=== PATIENT | male | born 1970 | race Hispanic/Latino ===

== ENCOUNTER 2021-04-19 14:05 | Emergency (ER) | payer OTHER ==
--- NOTE | 2021-04-19 15:25 | ER ---
Nurse's Notes [facility] Name: Rebel Centeno Jr Age: 50 yrs Sex: Male : 1970 Arrival Date: 04/19/2021 Time: 14:07 Bed 14 Private MD: Hannah Pimentel C Diagnosis: Presentation: 04/19 14:22 Chief complaint: Patient states: L wrist pain, swelling, tenderness since midnight. No ll1 trauma, but uses his hands a lot at work. PMS intact. Coronavirus screen: Client denies travel out of the [place] in the last 14 days. At this time, the client does not indicate any symptoms associated with coronavirus-19. Ebola Screen: Patient denies travel to an Ebola-affected area in the 21 days before illness onset. Initial Sepsis Screen: Does the patient meet any 2 criteria? No. Patient's initial sepsis screen is negative. Does the patient have a suspected source of infection? No. Patient's initial sepsis screen is negative. Risk Assessment: Do you want to hurt yourself or someone else? Patient reports no desire to harm self or others. Onset of symptoms was April 19, 2021. 14:22 Method Of Arrival: Ambulatory ll1 14:22 Acuity: MANJINDER 4 ll1 Historical: - Allergies: 14:22 PENICILLINS; ll1 - PMHx: 14:22 None; ll1 - PSHx: 14:22 knee sx; twisted intestines at with repair; ll1 - Immunization history:: Flu vaccine is not up to date. - Social history:: Smoking status: Patient denies any tobacco usage or history of. Vital Signs: 14:22 BP 147 / 104; Pulse 71; Resp 17; Temp 98.5; Pulse Ox 97% ; Weight 104.33 kg; Height 5 ll1 ft. 9 in. (175.26 cm); Pain 10/10; 14:22 Body Mass Index 33.96 (104.33 kg, 175.26 cm) ll1 ED Course: 14:07 Patient arrived in ED. am2 14:08 Hannah Pimentel FNP is Private Physician. am2 14:21 Arm band placed on. ll1 14:24 Triage completed. ll1 15:23 [facility] cp 15:23 Chaim Lindsey MD is Attending Physician. cp 15:23 Nadya Gomez, RN is Primary Nurse. ca1 15:23 Patient placed in an exam room, on a stretcher. ll1 Administered Medications: No medications were administered Outcome: 15:25 Patient left the ED. iw Signatures: Daisy Pruett RN RN iw Chaim Marrufo PA PA cp Moreno, Amanda 2 Nadya Gomez RN RN ca1 Nikolas Menjivar RN RN ll1
[2021-04-19 15:35] VITALS: BP 147/104; TEMP 98.5; O2SAT 97
== END 2021-04-19 15:25 | disposition left against medical advice (07) ==
LOC: ER 14:05
DX: Z53.21 Procedure and treatment not carried out due to patient leaving prior to being seen by health care provider (principal)
CPT/HCPCS: 99281